=== PATIENT | female | born 1985 | race Caucasian/White ===

== ENCOUNTER 2018-08-19 13:53 | Emergency (ER) | payer BC ==
[~2018-08-19] VITALS: Ht 177.8 cm; Wt 124.7 kg
[2018-08-19] MEDS ORDERED: NEXIUM20 M1 PO (14:52)
== END 2018-08-19 15:35 | disposition home or self-care (01) ==
LOC: ED 13:53
DX: S30.0XXA Contusion of lower back and pelvis, initial encounter (principal); S20.229A Contusion of unspecified back wall of thorax, initial encounter; S50.311A Abrasion of right elbow, initial encounter; Z88.0 Allergy status to penicillin; Z88.1 Allergy status to other antibiotic agents; Z79.899 Other long term (current) drug therapy; W10.9XXA Fall (on) (from) unspecified stairs and steps, initial encounter; Y93.01 Activity, walking, marching and hiking; Y92.89 Other specified places as the place of occurrence of the external cause; Y99.8 Other external cause status